=== PATIENT | male | born 2000 ===

== ENCOUNTER 2022-03-25 09:51 | Emergency (ER) | payer BC, SELFPAY ==
[2022-03-25 10:56] VITALS: BP 147/96; PULSE 96; RESP 16; TEMP 36.9; O2SAT 98
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
== END 2022-03-25 12:23 | disposition home or self-care (01) ==
PROVIDERS: Emergency Provider Physician Assistant
DX: Z20.2 Contact with and (suspected) exposure to infections with a predominantly sexual mode of transmission (principal)
CPT/HCPCS: 99281